=== PATIENT | male | born 1945 | race Caucasian/White ===

== ENCOUNTER 2017-07-13 12:30 | Inpatient (IN) | payer OTHER ==
[2017-08-05] MEDS ORDERED: LR 1,000 ML IV ONE (08:09)
[2017-08-05] MEDS ORDERED: ceFAZolin 2 GM/SWFI 2 GM/20 ML SYR IVP ONE (08:09)
[2017-08-05] MEDS ORDERED: GABAPENTIN 300 MG CAP PO ONE (08:09)
[2017-08-05] MEDS ORDERED: ACETAMINOPHEN 500 MG TAB PO ONE (08:09)
[2017-08-05] MEDS ORDERED: CHLORHEXIDINE GLUC HIBICLENS 118 ML BTL TP ONE (09:43)
[2017-08-05] MEDS ORDERED: BUPIVACAINE 0.25% 30 ML SDV ONE (09:43)
[2017-08-05] MEDS ORDERED: THROMBIN (BOVINE) 5,000 UNIT VIAL TP ONE (09:43)
[2017-08-05] MEDS ORDERED: BACITRACIN 50,000 UNITS/10 ML SYR IRR ONE (09:44)
[2017-08-05] MEDS ORDERED: ONDANSETRON DISINTEGRATING 4 MG TAB PO PRN (09:55)
[2017-08-05] MEDS ORDERED: HYDROmorphONE/DILAUDID 6 MG/30 ML PCA IV PRN (09:55)
[2017-08-05] MEDS ORDERED: NALOXONE HCL 0.4 MG/ML INJ IVP PRN (09:55)
[2017-08-05] MEDS ORDERED: HYDROmorphONE/DILAUDID 1 MG/ML INJ IVP PRN (09:55)
[2017-08-05] MEDS ORDERED: ONDANSETRON 4 MG/2 ML VIAL IVP PRN ×3 (09:55→11:58)
[2017-08-05] MEDS ORDERED: diphenhydrAMINE 25 MG CAP PO PRN (09:55)
[2017-08-05] MEDS ORDERED: BISACODYL 10 MG SUPP PR PRN (09:55)
[2017-08-05] MEDS ORDERED: LACTULOSE 20 GM/30 ML UDCUP PO PRN (09:55)
[2017-08-05] MEDS ORDERED: NS W/ 20 KCl/L 1,000 ML IV SCH (10:00)
--- NOTE | 2017-08-05 10:03 | PDHPUP ---
History & Physical Update H&P update statement: This history and physical update is based on an assessment of the patient which was completed after admission or registration (within 24 hours), but prior to the surgery/procedure. H&P update: H&P reviewed & patient examined, no change in patient's condition since H&P completed
[2017-08-05] MEDS ORDERED: PROPOFOL/EMULSION 500 MG/50 ML BOTTLE IV ONE ×2 (10:09→11:03)
[2017-08-05] MEDS ORDERED: fentaNYL 100 MCG/2 ML INJ ONE ×4 (10:09→14:29)
[2017-08-05] MEDS ORDERED: MIDAZOLAM 2 MG/2 ML VIAL ONE (10:44)
[2017-08-05] MEDS ORDERED: LIDOCAINE 2% 5 ML SDV ONE (10:48)
[2017-08-05] MEDS ORDERED: ROCURONIUM 50 MG/5 ML VIAL ONE (10:48)
[2017-08-05] MEDS ORDERED: ONDANSETRON 4 MG/2 ML VIAL ONE (10:48)
--- NOTE | 2017-08-05 10:48 | PDANEPAE ---
ANE Past Medical History - Cardiovascular History Hx Hypertension: Yes Hx Arrhythmias: No Hx Chest Pain: No Hx Coronary Artery / Peripheral Vascular Disease: No Hx CHF / Valvular Disease: No Hx Palpitations: No - Pulmonary History Hx COPD: No Hx Asthma/Reactive Airway Disease: No Hx Recent Upper Respiratory Infection: No Hx Oxygen in Use at Home: No Hx Sleep Apnea: No Sleep Apnea Screening Result - Last Documented: Positive - Neurologic History Hx Cerebrovascular Accident: No Hx Seizures: No Hx Dementia: No - Endocrine History Hx Diabetes: No - Renal History Hx Renal Disorders: No - Liver History Hx Hepatic Disorders: No - Neurological & Psychiatric Hx Hx Neurological and Psychiatric Disorders: Yes Neurological / Psychiatric History Comment: pain to gluteals - Cancer History Hx Cancer: No - Congenital Disorder History Hx Congenital Disorders: No - GI History Hx Gastrointestinal Disorders: Yes Gastrointestinal History Comment: reflux intermittent - Other Health History Other Health History: bilat hamstring rupture/repair 2017 - Chronic Pain History Chronic Pain: No - Surgical History Prior Surgeries: 2013 femur trochanteric fx/repair. 2016 bilat hamstring rupture/repair ANE Review of Systems Review of Systems: - Exercise capacity METS (RN): 4 METS ANE Patient History - Allergies Allergies/Adverse Reactions: meperidine [From Demerol] Allergy (Severe, Verified 07/03/17 15:03) Difficulty breathing/Flushing - Home Medications Home Medications: Allopurinol [Allopurinol 300 MG (RX)] 300 mg PO DAILY 07/03/17 [Last Taken 08/05] Aspirin [Aspirin 325 mg (*)] 325 mg PO DAILY 07/03/17 [Last Taken 07/28/17] Gabapentin [Neurontin 100 MG (*)] 300 mg PO TID 07/03/17 [Last Taken 08/05/17] Lisinopril [Zestril 40 mg (*)] 40 mg PO DAILY 07/03/17 [Last Taken 08/05/17] Rosuvastatin Calcium [Crestor 20mg (*)] 20 mg PO DAILY 07/03/17 [Last Taken 12/16] Zolpidem Tartrate [Ambien 5MG (*)] 10 mg PO HS PRN 07/03/17 [Last Taken 3 Days Ago ~08/02/17] amLODIPine BESYLATE [Norvasc 5 mg (*)] 5 mg PO HS 07/03/17 [Last Taken 1 Day Ago ~08/04/17] oxyCODONE IR [Oxycodone Ir (*)] 15 mg PO TID PRN 07/03/17 [Last Taken 1 Day Ago ~08/04/17] - NPO status NPO Since - Liquids (Date): 08/05/17 NPO Since - Liquids (Time): 08:30 NPO Since - Solids (Date): 08/04/17 NPO Since - Solids (Time): 19:00 - Smoking Hx Smoking Status: Never smoked - Family Anes Hx Family Hx Anesthesia Complications: none ANE Labs/Vital Signs - Vital Signs Blood Pressure: 138/98 Heart Rate: 86 Respiratory Rate: 16 O2 Sat (%): 93 Height: 180.34 cm Weight: 89.358 kg ANE Physical Exam - Airway Neck exam: FROM Mallampati Score: Class 1 Mouth exam: normal dental/mouth exam - Pulmonary Pulmonary: no respiratory distress, no rales or rhonchi, clear to auscultation - Cardiovascular Cardiovascular: regular rate and rhythym, no murmur, rub, or gallop - ASA Status ASA Status: II ANE Anesthesia Plan Anesthesia Plan: general endotracheal anesthesia Lines/Monitors: additional IV
[2017-08-05] MEDS ORDERED: ALBUMIN 5% 250 ML BOTTLE IV ONE (11:10)
[2017-08-05] MEDS ORDERED: PHENYLEPHRINE HCL 100 MCG/ML SYR ONE (11:29)
[2017-08-05] MEDS ORDERED: VASOPRESSIN 20 UNIT/ML VIAL ONE (11:29)
[2017-08-05] MEDS ORDERED: LR 500 ML IV PRN (11:58)
[2017-08-05] MEDS ORDERED: DEXAMETHASONE 4 MG/ML VIAL IVP PRN (11:58)
[2017-08-05] MEDS ORDERED: ALBUTEROL 3 ML DEYVIAL IH PRN (11:58)
[2017-08-05] MEDS ORDERED: DIAZEPAM 5 MG/ML 1 ML SYR IVP PRN (11:58)
[2017-08-05] MEDS ORDERED: SUGAMMADEX SODIUM 200 MG/2 ML VIAL IVP ONE (13:09)
[2017-08-05] MEDS: fentaNYL 100 MCG/2 ML INJ IVP PRN ×4 (13:51→15:07)
--- NOTE | 2017-08-05 13:56 | NEUSURGPN ---
Assessment/Plan: Post Op Visit: S: Awake and alert with expected lower back pain O: AFVSS/PERRLA/EOMI no droop CN 2-12 grossly intact +lt touch 5/5 BUE/BLE CDI HAYDE in place A/P: 72 yo male that is s/p TLIF at L4/5 -orders in place -brace when out of bed -call with any questions or concerns -pt seen by Dr Bowling as well -admit to floor Neurosurgery Physical Exam - Vitals, I&O, Labs I and O 08/04/17 08/05/17 08/06/17 05:59 05:59 05:59 Weight 89.358 kg Vital Signs Temp Pulse Resp BP Pulse Ox 37.0 C 86 16 138/98 H 93 08/05/17 08:52 08/05/17 10:48 08/05/17 10:48 08/05/17 10:48 08/05/17 10:48 ICD10 Worksheet Patient Problems: Problems Problem Status Onset Arthrodesis present Acute Lumbar radicular pain Acute Lumbar stenosis Acute - ICD10 Problem Qualifiers (1) Lumbar stenosis (2) Lumbar radicular pain (3) Arthrodesis present
[2017-08-05] MEDS ORDERED: ACETAMINOPHEN 500 MG TAB PO SCH (14:00)
[2017-08-05] MEDS ORDERED: ceFAZolin 2 GM/DEXTROSE 100 ML IV SCH (14:00)
--- NOTE | 2017-08-05 15:01 | POSTANESTH ---
Post Anesthetic Evaluation Cardiovascular Status: Normal, Stable Respiratory Status: Normal, Stable Level of Consciousness/Mental Status: Mildly Sleepy, Arousable Pain Control: Adequate, Prn Tx Ordered Nausea/Vomiting Control: Adequate, Prn Tx Ordered Complications Possibly Related to Anesthesia: None Noted
[2017-08-05] MEDS ORDERED: GABAPENTIN 100 MG CAP PO SCH (16:00)
[2017-08-05] MEDS: ACETAMINOPHEN 500 MG TAB PO SCH ×2 (16:26→23:41)
[2017-08-05] MEDS: ceFAZolin 2 GM/SWFI 2 GM/20 ML SYR IVP SCH ×2 (16:27→23:42)
[2017-08-05] MEDS: GABAPENTIN 100 MG CAP PO SCH ×2 (16:33→22:14)
[2017-08-05] MEDS: HYDROmorphONE/DILAUDID 2 MG/ML INJ IVP PRN (16:56)
[2017-08-05] MEDS: METHOCARBAMOL 750 MG TAB PO PRN ×2 (17:23→23:41)
[2017-08-05] MEDS: oxyCODONE IR 15 MG TAB PO PRN (17:23)
--- NOTE | 2017-08-05 18:25 | PDMN ---
Medical Necessity Medical necessity: Pt meets IP criteria; [facility] IP only surgery CPT 50865 Lumbar fusion, s/p L spine TLIF L4/5
--- NOTE | 2017-08-05 19:05 | GOP ---
[f rep st] OPERATIVE REPORT DATE OF OPERATION: 08/05/2017 SURGEON: Min Bowling MD DOPE MIXER: Ian Leonard PA-C. 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 PROCEDURE PERFORMED: Posterolateral and intervertebral arthrodesis with bilateral decompressions at L4-5 (96744), posterior nonsegmental instrumentation across a single interspace L4-5 (85330), same in cision bone graft harvest, microscope, placement of biomechanical intervertebral device L4-5. FINDINGS: ESTIMATED BLOOD LOSS: 100 cc. 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 He had a severe degenerative tilt of L4 on L5 and severe foraminal stenosis for the exiting L4 nerve root. On prior MRIs in 2015, he had a left-sided small synovial cyst at L4-5 causing some lef t lateral recess stenosis. This cyst was no longer apparent, but he had remarkable left-sided ligame ntum hypertrophy in the same region as this prior cyst, but he had right more than left leg symptoms, but he was really getting symptoms on both sides. None of the left-sided symptoms were in the poste rior hamstring. He was getting bilateral calf symptoms in the posterior lateral calf, but none consi stent with an S1 radiculopathy. His MRI demonstrated a left L5-S1 lateral recess stenosis as well as a left-sided L3-4 bilateral stenosis, but I did not think either of these were causing problems for him. He understood that in time he may need surgery at those adjacent segments, and he did want to p roceed with this. He had seen another surgeon, Dr. Perez, for an opinion, who, as I was told, anita sted spinal fusion as well, although I did not have the official note from that surgeon. The risk of screw and hardware malposition, malfunction, pseudoarthrosis, adjacent segment disease, nerve injury , spinal fluid leak was discussed. He understood these risks and he wanted to proceed. DESCRIPTION OF PROCEDURE: The patient was taken to the operating room, placed in supine position. G eneral anesthesia was begun. He was flipped prone onto the James table. Care was taken to pad all points of contact. His back sterilely prepped and draped in the usual fashion. A localizing x-ray was taken. We made a midline incision above the L4-5 interspace. The subcutaneous tissue was dissec oxaan using Bovie cautery down through the fascia, and a subperiosteal dissection was made down the L4- 5 lamina as well as the inferior L3 lamina. We denuded the bilateral L4-5 hypertrophic facets. Ther e were large bilateral synovial cysts coming out each of the facets. The right was really just as ba d as the left. There was a large rostral cyst coming out of the right L4-5 facet protruding down int o the neural foramen there. We marked our pedicle screw entry zone and attached a Stealth reference frame, performed an O-arm spin and placed 4 pedicle screws bilaterally. They were all in excellent p osition. They stimulated at good levels. We performed another O-arm spin, confirming the position o f the hardware, and placed screws down and reduce the degenerative tilt at L4-5 to basically perfect on AP and lateral imaging. The degenerative tilt toward the right-hand side was completely reduced. We removed all the soft tissue bone, the L4-5 lamina, harvested the inferior L4 spinous process. We harvested the bilateral L4-5 lamina for autologous grafting purposes, and under the scope we perform ed decompressions bilaterally. There was really very severe bilateral recess stenosis on each side, and both sides were totally decompressed. We removed the right L4-5 facet joint in its entirety, swe pt the L5 nerve root medially, incised the L4-5 disk, removed the disk and the cartilaginous endplate s. The disk itself was quite degenerative, particularly on the right-hand side. We roughened the diaz bchondral bone to create arthrodesis and then chose an 8 x 28 mm Elevate cage for the space. We pack ed with bone autograft and BMP, inserted it at L4-5. We used 2.0 mg of BMP for the surgery. We inse rted the 8 x 28 mm device, expanded it under fluoroscopic guidance, and I was very happy with the pos ition of the device. We then decorticated all the remaining posterolateral bone bilaterally, placed a subfascial drain. The screws and hardware used were [employer] Solara 475 system. We closed the in cision in multiple layers using Vicryl sutures. Steri-Strips were applied to the skin. There were n o complications. COMPLICATIONS: None. /[id number]/MODL
[2017-08-05] MEDS: amLODIPine BESYLATE 5 MG TAB PO SCH (22:14)
[2017-08-05] MEDS: SENNOSIDES/DOCUSATE SODIUM TAB PO SCH (22:15)
[2017-08-05] MEDS: FAMOTIDINE 20 MG TAB PO SCH (22:15)
[2017-08-05] MEDS: HYDROCODONE/APAP 5/325 TAB PO PRN (22:20)
[2017-08-06] MEDS: ZOLPIDEM TARTRATE 5 MG TAB PO PRN (00:06)
[2017-08-06] MEDS: oxyCODONE IR 15 MG TAB PO PRN ×3 (00:07→16:50)
[2017-08-06] MEDS: HYDROCODONE/APAP 5/325 TAB PO PRN (04:59)
[2017-08-06 05:11] LABS: PLATELET COUNT 136 10^3/uL (150-400)
--- NOTE | 2017-08-06 07:09 | NEUSURGPN ---
Date of Surgery: 08/05/17 Post Op Day: 1 Assessment/Plan: Assessment: 72 yo male that is s/p TLIF at L4/5 POD #1 Plan: -s/p TLIF at L4/5: pt with expected lower back pain -working on adjusting pain medication for better pain control-will add [place] -LE feels better -pending xrays of the L spine today -HAYDE to be removed later today -orders in place -brace when out of bed-fitting fine -call with any questions or concerns -pt seen by Dr Bowling as well -plan for dc possible tomorrow or Thursday Subjective: Awake and alert. NAD. Pt eating/drinking and voiding. No f/c/n/v/d. Pt with expected lower back pain. Objective: AFVSS/PERRLA/EOMI no droop CN 2-12 grossly intact +lt touch 5/5 BUE/BLE CDI HAYDE in place Neuro Check Frequency: per routine Urinary Catheter in Place: No - Physician Discussed Patient with : Dash Patient Seen by : Dash Neurosurgery Physical Exam - Vitals, I&O, Labs I and O 08/05/17 08/06/17 08/07/17 05:59 05:59 05:59 Intake Total 3360 Output Total 3355 Balance 5 Weight 89.358 kg Intake: Oral (ml) 2460 IV Intake (ml) 900 Output: Urine (ml) 2275 Catheter 500 Urinal 1775 Estimated Blood Loss (ml) 200 HAYDE Drain Output (ml) 880 Back James Perry 880 Other: Intake Quantity Yes Sufficient Number of Voids Urinal 1 Vital Signs Temp Pulse Resp BP Pulse Ox 36.6 C 101 H 16 128/83 H 94 08/06/17 04:00 08/06/17 04:00 08/06/17 04:00 08/06/17 04:00 08/06/17 04:00 Laboratory Results 08/06/17 04:33 08/06/17 04:33 ICD10 Worksheet Patient Problems: Problems Problem Status Onset Arthrodesis present Acute Lumbar radicular pain Acute Lumbar stenosis Acute - ICD10 Problem Qualifiers (1) Lumbar stenosis (2) Lumbar radicular pain (3) Arthrodesis present
[2017-08-06] MEDS ORDERED: HYDROCODONE/APAP 10/325 TAB PO PRN (07:11)
[2017-08-06] MEDS: ALLOPURINOL 300 MG TAB PO SCH (08:55)
[2017-08-06] MEDS: LISINOPRIL 40 MG TAB PO SCH (08:55)
[2017-08-06] MEDS: ROSUVASTATIN CALCIUM 20 MG TAB PO SCH (08:56)
[2017-08-06] MEDS: ACETAMINOPHEN 500 MG TAB PO SCH ×3 (08:56→23:49)
[2017-08-06] MEDS: GABAPENTIN 100 MG CAP PO SCH ×3 (08:56→21:13)
[2017-08-06] MEDS: FAMOTIDINE 20 MG TAB PO SCH ×2 (08:56→21:14)
[2017-08-06] MEDS: SENNOSIDES/DOCUSATE SODIUM TAB PO SCH ×2 (08:57→21:13)
[2017-08-06] MEDS: HYDROmorphONE/DILAUDID 2 MG/ML INJ IVP PRN (10:15)
[2017-08-06] MEDS: METHOCARBAMOL 750 MG TAB PO PRN ×2 (10:15→16:49)
--- NOTE | 2017-08-06 15:13 | ASMTCMCOM ---
CM Note CM Note Notes: Pt s/p TLIF at L4/5. PT/OT rec home. Anticipate pt will d/c when medically stable with support of spouse. No CM d/c needs identified at this time. CM available for changes/needs. Date Signed: 08/06/2017 03:12 PM Electronically Signed By:UDC Sung
[2017-08-06] MEDS: amLODIPine BESYLATE 5 MG TAB PO SCH (21:14)
[2017-08-06] MEDS: POLYETHYLENE GLYCOL 3350 17 GM PKT PO PRN (21:28)
[2017-08-06] MEDS: METHOCARBAMOL 750 MG TAB PO SCH (23:49)
[2017-08-06] MEDS: oxyCODONE IR 5 MG TAB PO PRN (23:49)
[2017-08-07] MEDS: METHOCARBAMOL 750 MG TAB PO SCH ×4 (06:02→21:07)
--- NOTE | 2017-08-07 08:34 | NEUSURGPN ---
Date of Surgery: 08/05/17 Post Op Day: 2 Assessment/Plan: Assessment: 72 yo male that is s/p TLIF at L4/5 POD #2 Plan: -s/p TLIF at L4/5: pt with expected lower back pain -working on adjusting pain medication for better pain control-will add PO Dilaudid today, started DISTANCE EDUCATION FACULTY LIAISON last night -post op xrays stable -DC HAYDE -brace when out of bed -call with any questions or concerns -pt seen by Dr Bowling as well -please call neurosurgery with any questions/concerns Subjective: Continuing to have expected incisional pain Objective: PERRLA/EOMI no droop +lt touch 5/5 BUE/BLE Dressing CDI HAYDE in place Neuro Check Frequency: per routine Urinary Catheter in Place: No - Physician Discussed Patient with : Dash Patient Seen by : Dash Neurosurgery Physical Exam - Vitals, I&O, Labs I and O 08/06/17 08/07/17 08/08/17 05:59 05:59 05:59 Intake Total 3360 3400 Output Total 3355 990 50 Balance 5 2410 -50 Weight 89.358 kg Intake: Oral (ml) 2460 3400 IV Intake (ml) 900 Output: Urine (ml) 2275 875 Catheter 500 Urinal 1775 875 Estimated Blood Loss (ml) 200 HAYDE Drain Output (ml) 880 115 50 Back James Perry 880 115 50 Other: Intake Quantity Yes Yes Sufficient Number of Voids Urinal 1 1 Vital Signs Temp Pulse Resp BP Pulse Ox 37.1 C 101 H 16 99/64 L 93 08/07/17 07:47 08/07/17 07:47 08/07/17 07:47 08/07/17 07:47 08/07/17 07:47 Laboratory Results 08/06/17 04:33 08/06/17 04:33 ICD10 Worksheet Patient Problems: Problems Problem Status Onset Arthrodesis present Acute Lumbar radicular pain Acute Lumbar stenosis Acute
[2017-08-07] MEDS: ACETAMINOPHEN 500 MG TAB PO SCH ×3 (08:57→23:59)
[2017-08-07] MEDS: GABAPENTIN 100 MG CAP PO SCH ×3 (08:57→21:07)
[2017-08-07] MEDS: ROSUVASTATIN CALCIUM 20 MG TAB PO SCH (08:57)
[2017-08-07] MEDS: MAGNESIUM HYDROXIDE 30 ML UDCUP PO PRN (08:58)
[2017-08-07] MEDS: SENNOSIDES/DOCUSATE SODIUM TAB PO SCH ×2 (08:58→21:06)
[2017-08-07] MEDS: FAMOTIDINE 20 MG TAB PO SCH ×2 (09:00→21:08)
[2017-08-07] MEDS: ALLOPURINOL 300 MG TAB PO SCH (09:00)
[2017-08-07] MEDS: LISINOPRIL 40 MG TAB PO SCH (10:11)
[2017-08-07] MEDS ORDERED: NS 500 ML IV ONE ×3 (10:30→16:00)
--- NOTE | 2017-08-07 10:39 | ASMTCMCOM ---
CM Note CM Note Notes: Chart reviewed. Plan home independent. Patient had episode of hypotension this am. Hospital medicine consulted. Pain management has been an issue. DC likely delayed for now in setting of hypotension. Case management available should needs arise. Date Signed: 08/07/2017 10:38 AM Electronically Signed By:Charlee Hoffmann RN
--- NOTE | 2017-08-07 12:18 | PDHOSCONS ---
History and Physical - Chief Complaint hypotension - History of Present Illness i was called to bedside urgently by this pt's nurse with recent lumbar surgery and hypotension with BP in the 60's. A fluid bolus had already been given but blood pressures were starting to drop again. Briefly, this is a 72 yo male with hx of lumbar disease who was admitted by the NS team following lumbar surgery. A review of his record shows that his BP has been in the 130's yesterday until this morning during which his bp drop to the 90's systolic and then slowly further down from there. He has been receiving narcotic pain meds and given increased pain, a Dilaudid ADULT PAROLE OFFICER was started this morning. He has a hx of HTN and is on an MAITE-I and a CCB. He denies other hx of CV disease. He denies hx of VTE. He has never been on AC. He is on Lovenox at proph dosage. He does not have a hx of DM, chronic steroid use, thyroid disease, renal disease. He is on supplemental O2 but denies CP, SOB, palpitations, or leg swelling. He feels a bit dizzy. Hgb has dropped slightly from admission. 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 FMHX: Denies hx of blood clots History Information - Allergies/Home Medication List Allergies/Adverse Reactions: meperidine [From Demerol] Allergy (Severe, Verified 07/03/17 15:03) Difficulty breathing/Flushing Home Medications: Allopurinol [Allopurinol 300 MG (RX)] 300 mg PO DAILY 07/03/17 [Last Taken 08/05] Aspirin [Aspirin 325 mg (*)] 325 mg PO DAILY 07/03/17 [Last Taken 07/28/17] Gabapentin [Neurontin 100 MG (*)] 300 mg PO TID 07/03/17 [Last Taken 08/05/17] Lisinopril [Zestril 40 mg (*)] 40 mg PO DAILY 07/03/17 [Last Taken 08/05/17] Rosuvastatin Calcium [Crestor 20mg (*)] 20 mg PO DAILY 07/03/17 [Last Taken 12/16] Zolpidem Tartrate [Ambien 5MG (*)] 10 mg PO HS PRN 07/03/17 [Last Taken 3 Days Ago ~08/02/17] amLODIPine BESYLATE [Norvasc 5 mg (*)] 5 mg PO HS 07/03/17 [Last Taken 1 Day Ago ~08/04/17] oxyCODONE IR [Oxycodone Ir (*)] 15 mg PO TID PRN 07/03/17 [Last Taken 1 Day Ago ~08/04/17] I have personally reviewed and updated: medical history, social history - Social History Smoking Status: Never smoked Review of Systems Review of Systems: ROS: 10pt was reviewed & negative except for what was stated in HPI & below Physical Exam Physical Exam: Temp Pulse Resp BP Pulse Ox 36.6 C 84 14 94/58 L 98 08/07/17 11:32 08/07/17 11:32 08/07/17 11:32 08/07/17 11:32 08/07/17 11:32 O2 (L/minute) 4 Constitutional: no apparent distress Eyes: PERRL Ears, Nose, Mouth, Throat: moist mucous membranes, hearing normal Cardiovascular: regular rate and rhythym, No no murmur, rub, or gallop, No JVD, No edema Respiratory: no respiratory distress, no rales or rhonchi, clear to auscultation Gastrointestinal: normoactive bowel sounds, soft, non-tender abdomen Skin: warm Musculoskeletal: full muscle strength Neurologic: AAOx3 Psychiatric: interacting appropriately, not anxious, not encephalopathic Lymph, Heme, Immunologic: no cervical LAD Lab Data & Imaging Review 08/07/17 10:30 08/06/17 04:33 WBC 7.29 10^3/uL (3.80-9.50) 08/06/17 04:33 RBC 4.14 10^6/uL (4.40-6.38) L 08/06/17 04:33 Hgb 10.9 g/dL (13.7-17.5) L 08/07/17 10:30 Hct 32.0 % (40.0-51.0) L 08/07/17 10:30 MCV 90.8 fL (81.5-99.8) 08/06/17 04:33 MCH 31.2 pg (27.9-34.1) 08/06/17 04:33 MCHC 34.3 g/dL (32.4-36.7) 08/06/17 04:33 RDW 13.2 % (11.5-15.2) 08/06/17 04:33 Plt Count 136 10^3/uL (150-400) L 08/06/17 04:33 MPV 9.7 fL (8.7-11.7) 08/06/17 04:33 Neut % (Auto) 72.8 % (39.3-74.2) 08/06/17 04:33 Lymph % (Auto) 13.4 % (15.0-45.0) L 08/06/17 04:33 Starke % (Auto) 12.2 % (4.5-13.0) 08/06/17 04:33 Eos % (Auto) 0.7 % (0.6-7.6) 08/06/17 04:33 Baso % (Auto) 0.1 % (0.3-1.7) L 08/06/17 04:33 Nucleat RBC Rel Count 0.0 % (0.0-0.2) 08/06/17 04:33 Absolute Neuts (auto) 5.30 10^3/uL (1.70-6.50) 08/06/17 04:33 Absolute Lymphs (auto) 0.98 10^3/uL (1.00-3.00) L 08/06/17 04:33 Absolute Monos (auto) 0.89 10^3/uL (0.30-0.80) H 08/06/17 04:33 Absolute Eos (auto) 0.05 10^3/uL (0.03-0.40) 08/06/17 04:33 Absolute Basos (auto) 0.01 10^3/uL (0.02-0.10) L 08/06/17 04:33 Absolute Nucleated RBC 0.00 10^3/uL (0-0.01) 08/06/17 04:33 Immature Gran % 0.8 % (0.0-1.1) 08/06/17 04:33 Immature Gran # 0.06 10^3/uL (0.00-0.10) 08/06/17 04:33 Sodium 141 mEq/L (135-145) 03/08/18 04:33 Potassium 4.4 mEq/L (3.5-5.2) 08/06/17 04:33 Chloride 103 mEq/L (97-110) 08/06/17 04:33 Carbon Dioxide 30 mEq/l (22-31) 08/06/17 04:33 Anion Gap 8 mEq/L (8-16) 08/06/17 04:33 BUN 17 mg/dL (7-23) 08/06/17 04:33 Creatinine 1.0 mg/dL (0.7-1.3) 08/06/17 04:33 Estimated GFR > 60 08/06/17 04:33 Glucose 135 mg/dL (70-100) H 08/06/17 04:33 Calcium 9.2 mg/dL (8.5-10.4) 08/06/17 04:33 Assessment & Plan Assessment: #Post Operative Hypotension -Etiology is likely due to volume deficit + IV Dilaudid. His Hgb has decreased. Do not suspect P.E. (no cp, no resp issues, on proph Lovenox), active bleeding, infection, or other -He appears to be responding well to an additional IVF bolus. He does not want a blood transfusion -Will determine clinical response to 2nd fluid bolus and stopping IV Dilaudid. Will also recheck H/H at 1400. If still hypotensive or if H/H has dropped further, then will transfuse. He is in agreement with this plan. #Post operative Pain: -stop IV Dilaudid -Will attempt transition to oral pain meds and he is in agreement to this -If there is a need and BP is ok, can try other agents such as Morphine, but no Dilaudid #Hx of HTN: hold home Lisinopril and Norvasc #Lumbar stenosis with radiculopathy s/p surgical mgm -post op care per NS #DVT proph: Lovenox per NS. Would continue for now thank you for this consult. We will cont to follow along total Critical care time spent managing this paint with profound hypotension is 40 minutes
[2017-08-07 14:04] LABS: PLATELET COUNT 140 10^3/uL (150-400)
[2017-08-07] MEDS ORDERED: NS 1,000 ML IV SCH (16:00)
[2017-08-07] MEDS: HYDROmorphONE/DILAUDID 2 MG TAB PO PRN (17:42)
[2017-08-07] MEDS: oxyCODONE IR 5 MG TAB PO PRN (21:07)
[2017-08-08] MEDS: ZOLPIDEM TARTRATE 5 MG TAB PO PRN (00:01)
[2017-08-08] MEDS: HYDROmorphONE/DILAUDID 2 MG TAB PO PRN ×2 (00:01→05:31)
[2017-08-08] MEDS: oxyCODONE IR 5 MG TAB PO PRN ×3 (02:23→20:24)
[2017-08-08] MEDS: METHOCARBAMOL 750 MG TAB PO SCH ×4 (05:31→23:25)
[2017-08-08] MEDS: ALLOPURINOL 300 MG TAB PO SCH (08:48)
[2017-08-08] MEDS: SENNOSIDES/DOCUSATE SODIUM TAB PO SCH ×2 (08:48→20:25)
[2017-08-08] MEDS: GABAPENTIN 100 MG CAP PO SCH ×3 (08:48→21:27)
[2017-08-08] MEDS: FAMOTIDINE 20 MG TAB PO SCH ×2 (08:48→20:25)
[2017-08-08] MEDS: ROSUVASTATIN CALCIUM 20 MG TAB PO SCH (08:50)
[2017-08-08] MEDS: POLYETHYLENE GLYCOL 3350 17 GM PKT PO PRN (08:50)
[2017-08-08] MEDS: ENOXAPARIN 40 MG/0.4 ML SYR SC SCH (08:50)
[2017-08-08] MEDS: ACETAMINOPHEN 500 MG TAB PO SCH ×3 (08:57→23:25)
[2017-08-08] MEDS: morphINE SR 15 MG TAB PO SCH ×2 (09:01→22:54)
--- NOTE | 2017-08-08 13:33 | NEUSURGPN ---
Assessment/Plan: Assessment: 72 yo male that is s/p TLIF at L4/5 POD #3 Plan: -s/p TLIF at L4/5: pt with expected lower back pain -medicine seeing pt for hypotension. Had SBP in 70s initially, now improved but still with slightly lower bps 100s/60s -working on adjusting pain medication for better pain control- added MS contin today. Will plan to avoid dilaudid as likely caused low bp -post op xrays stable -brace when out of bed -call with any questions or concerns -dispo: likely home tomorrow, pending clinical course. -please call neurosurgery with any questions/concerns -Updated Dr Bowling Subjective: Pt resting in bed, states he thinks he is improving slowly. Pain still present but medications are helping Objective: AAOx3 NAD VSS MAEx4 Motor 5/5 BLE +LT Incision cdi dressed Urinary Catheter in Place: No - Physician Discussed Patient with : Dash Neurosurgery Physical Exam - Vitals, I&O, Labs I and O 08/07/17 08/08/17 08/09/17 05:59 05:59 06:59 Intake Total 3400 2175 Output Total 990 2600 Balance 2410 -425 Intake: Oral (ml) 3400 1200 IV Infused (ml) 975 Ns 1,000 ml @ 125 mls/hr 975 IV AD HEIDI Rx#:[id number] Output: Urine (ml) 875 2550 Catheter 850 Urinal 875 1700 HAYDE Drain Output (ml) 115 50 Back James Perry 115 50 Other: Intake Quantity Yes Yes Sufficient Number of Voids Catheter 1 Urinal 1 2 Vital Signs Temp Pulse Resp BP Pulse Ox 36.5 C 79 16 100/66 91 L 08/08/17 11:53 08/08/17 11:53 08/08/17 11:53 08/08/17 11:53 08/08/17 11:53 Laboratory Results 08/07/17 13:45 08/06/17 04:33 ICD10 Worksheet Patient Problems: Problems Problem Status Onset Arthrodesis present Acute Lumbar radicular pain Acute Lumbar stenosis Acute
--- NOTE | 2017-08-08 14:01 | HOSPPROG ---
Hospitalist Progress Note Assessment/Plan: 72 yo M w postop hypotension hypotension: resolved w 1500 cc IVF repeat hct now has been on VTE proph htn: hold lisinopril proph: lmwh pain: agree w hold IV dilaudid as per neurosurgery Subjective: case d/w dia cox, neurosurgery pa. no further hypotension Objective: Vital Signs Temp Pulse Resp BP Pulse Ox 36.5 C 79 16 100/66 91 L 08/08/17 11:53 08/08/17 11:53 08/08/17 11:53 08/08/17 11:53 08/08/17 11:53 Laboratory Results 08/07/17 13:45 08/06/17 04:33 08/07/17 08/08/17 08/09/17 05:59 05:59 06:59 Intake Total 3400 2175 Output Total 990 2600 Balance 2410 -425 - Physical Exam Constitutional: no apparent distress, appears nourished Eyes: PERRL, anicteric sclera Ears, Nose, Mouth, Throat: moist mucous membranes, hearing normal, ears appear normal Cardiovascular: regular rate and rhythym, no murmur, rub, or gallop Respiratory: no respiratory distress Gastrointestinal: normoactive bowel sounds Genitourinary: no bladder fullness, No powell in urethra Skin: warm, normal color Musculoskeletal: full muscle strength Neurologic: AAOx3 ICD10 Worksheet Patient Problems: Problems Problem Status Onset Arthrodesis present Acute Lumbar radicular pain Acute Lumbar stenosis Acute
[2017-08-08] MEDS: MAGNESIUM HYDROXIDE 30 ML UDCUP PO PRN (20:24)
[2017-08-09] MEDS: oxyCODONE IR 5 MG TAB PO PRN ×2 (03:36→09:23)
[2017-08-09] MEDS: METHOCARBAMOL 750 MG TAB PO SCH ×3 (05:53→18:10)
--- NOTE | 2017-08-09 08:46 | NEUSURGPN ---
Assessment/Plan: Assessment: 72 yo male that is s/p TLIF at L4/5 POD #4 Plan: -s/p TLIF at L4/5: pt with expected lower back pain -medicine seeing pt for hypotension. Had SBP in 70s initially, now improved but still with slightly lower bps 100s/70s -pain control - did not need MS contin last night and this AM states pain is well managed. Will DC this med. Keep oxycodone/robaxin/gabapentin -post op xrays stable -brace when out of bed -TEDs, SCDs, lovenox -call with any questions or concerns -dispo: home today as long as does well with therapies and no issues -please call neurosurgery with any questions/concerns Subjective: Pt resting in bed, states he is feeling like he his finally improving, is moving better. States pain is controlled Objective: AAOx3 NAD VSS MAEx4 Motor 5/5 BLE Incision cdi +LT Urinary Catheter in Place: No Neurosurgery Physical Exam - Vitals, I&O, Labs I and O 08/08/17 08/09/17 08/10/17 04:59 05:59 05:59 Intake Total Output Total Balance Intake: Oral (ml) IV Infused (ml) Ns 1,000 ml @ 125 mls/hr IV AD HEIDI Rx#:[id number] Output: Urine (ml) Catheter Urinal HAYDE Drain Output (ml) Back James Perry Other: Intake Quantity Sufficient Number of Voids Catheter Toilet 1 Urinal Vital Signs Temp Pulse Resp BP Pulse Ox 37.1 C 92 14 107/76 93 08/09/17 08:00 08/09/17 08:00 08/09/17 08:00 08/09/17 08:00 08/09/17 08:00 Laboratory Results 08/08/17 14:18 08/06/17 04:33 ICD10 Worksheet Patient Problems: Problems Problem Status Onset Arthrodesis present Acute Lumbar radicular pain Acute Lumbar stenosis Acute
--- NOTE | 2017-08-09 08:53 | PDIAF ---
- Diagnosis Code Status: Full Code - Medication Management Discharge Medications: Medications to Continue on Transfer Allopurinol [Allopurinol 300 MG (RX)] 300 mg PO DAILY 07/03/17 [Last Taken 08/05] Gabapentin [Neurontin 100 MG (*)] 300 mg PO TID 07/03/17 [Last Taken 08/05/17] Lisinopril [Zestril 40 mg (*)] 40 mg PO DAILY 07/03/17 [Last Taken 08/05/17] Rosuvastatin Calcium [Crestor 20mg (*)] 20 mg PO DAILY 07/03/17 [Last Taken 12/16] amLODIPine BESYLATE [Norvasc 5 mg (*)] 5 mg PO HS 07/03/17 [Last Taken 1 Day Ago ~08/04/17] Methocarbamol [Robaxin 750 mg (*)] 750 mg PO Q6H #60 tab 08/09/17 [Last Taken Unknown] Polyethylene Glycol 3350 [Miralax 17 gm (*)] 17 gm PO DAILY PRN pkt 08/09/17 [ Last Taken Unknown] Sennosides/Docusate Sodium [Senokot-S] 1 - 2 tab PO BID tab 08/09/17 [Last Taken Unknown] oxyCODONE IR [Oxycodone Ir (*)] 5 - 15 mg PO Q4H PRN #100 tab 08/09/17 [Last Taken Unknown] Discharge Medications: Refer to the Discharge Home Medication list for PRN reason. - Orders Services needed: Home Care, Registered Nurse, Physical Therapy, Occupational Therapy Home Care Face to Face: I certify that this patient was under my care and that I had the required [id number] encounter meeting the encounter requirements on the discharge day. My findings support the fact that the patient is homebound as defined in Home Care Face to Face Continued: CMS Chapter 7 Medicare Benefits Manual 30.1.1 , The condition of the patient is such that there exists a normal inability to leave home and consequently, leaving home would require a considerable and taxing effort. Diet Recommendation: no restrictions on diet Diet Texture: Regular Texture Diet Wound Care Instructions: keep incision clean, dry, and intact. daily dressing changes Activity/Weight Bearing Restrictions: 5-10 lb weight limit. wear brace when out of bed - Follow Up Care Current Providers and Referrals: LASHONDA BAEZA [Other]
[2017-08-09] MEDS: ROSUVASTATIN CALCIUM 20 MG TAB PO SCH (08:59)
[2017-08-09] MEDS: POLYETHYLENE GLYCOL 3350 17 GM PKT PO PRN (08:59)
[2017-08-09] MEDS: SENNOSIDES/DOCUSATE SODIUM TAB PO SCH (08:59)
[2017-08-09] MEDS: ACETAMINOPHEN 500 MG TAB PO SCH ×2 (09:00→18:09)
[2017-08-09] MEDS: FAMOTIDINE 20 MG TAB PO SCH (09:00)
[2017-08-09] MEDS: ALLOPURINOL 300 MG TAB PO SCH (09:00)
[2017-08-09] MEDS: ENOXAPARIN 40 MG/0.4 ML SYR SC SCH (09:00)
[2017-08-09] MEDS ORDERED: MAGNESIUM HYDROXIDE 30 ML UDCUP PO PRN (09:21)
[2017-08-09] MEDS ORDERED: LACTULOSE 20 GM/30 ML UDCUP PO PRN (09:21)
[2017-08-09] MEDS ORDERED: POLYETHYLENE GLYCOL 3350 17 GM PKT PO PRN (09:21)
[2017-08-09] MEDS ORDERED: BISACODYL 10 MG SUPP PR PRN (09:21)
[2017-08-09] MEDS: GABAPENTIN 100 MG CAP PO SCH (09:25)
[2017-08-09 13:44] VITALS: O2SAT 97
--- NOTE | 2017-08-09 13:56 | PDHOMEO2F ---
Home Oxygen Face to Face Home Orders: I certify that a physician or a nurse practitioner or physician's economic research assistant has had a [id number] encounter with this patient on the date of this order due to the diagnosis listed, which relates to the primary reason the patient requires home oxygen. Alternative treatments have been tried, or considered, and deemed ineffective. It is anticipated that supplemental oxygen will result in improvement with treatment. Home oxygen qualifying diagnosis: hypoxia SpO2 on room air (%): 76 Frequency of home oxygen needed: continuous Home oxygen liters per minute: 3 Home oxygen delivery device: nasal cannula Concentrator: Yes E-tanks for mobility and back up: No I certify that, based on these findings, the home oxygen is medically necessary for this patient for the following length of time. Length of time home oxygen needed: 1 month (continue until cleared by primary doctor)
[2017-08-09 15:39] VITALS: BP 129/78; PULSE 88; RESP 15; TEMP 98.1
--- NOTE | 2017-08-09 18:01 | ASMTCMCOM ---
CM Note CM Note Notes: Pt will need HC RN, PT and OT. [facility] has accepted pt. SOC tomorrow. Date Signed: 08/09/2017 10:43 AM Electronically Signed By:Ruth Ann Haskins LCSW
[2017-08-09] MEDS ORDERED: SENNOSIDES/DOCUSATE SODIUM TAB PO SCH (21:00)
== END 2017-08-09 18:24 | disposition home health service (06) | DRG 460 ==
LOC: F3N 08-05 08:02
PROVIDERS: ADMIT Neurological Surgery; ATTEND Neurological Surgery
PROC: 0SG00AJ Fusion of Lumbar Vertebral Joint with Interbody Fusion Device, Posterior Approach, Anterior Column, Open Approach (ICD-10-PCS; principal; 2017-08-05 10:00)
PROC: 00NY0ZZ Release Lumbar Spinal Cord, Open Approach (ICD-10-PCS; principal; 2017-08-05 10:00)
DX: M51.36 Other intervertebral disc degeneration, lumbar region (principal); I95.81 Postprocedural hypotension; E86.9 Volume depletion, unspecified; G89.18 Other acute postprocedural pain; M48.061 Spinal stenosis, lumbar region without neurogenic claudication; M54.16 Radiculopathy, lumbar region; M71.38 Other bursal cyst, other site; I10 Essential (primary) hypertension
CPT/HCPCS: 97116-GP; 97161-GP; 97165-GO; 97530-GO; 97530-GP; 97535-GO; C1713; G8978-GP-CI; G8978-GP-CK; G8979-GP-CI; G8980-GP-CI; G8987-GO-CI; G8988-GO-CI; G8989-GO-CI; J0171; J0690; J1170; J1650; J2250; J2270; J2370; J2405; J2704; J3010; P9041